=== PATIENT | female | born 2000 | race African-American/Black ===

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

== ENCOUNTER 2020-01-28 20:57 | Emergency (ER) | payer BC ==
[~2020-01-28] VITALS: Ht 157.5 cm; Wt 52.0 kg
[2020-01-28] MEDS ORDERED: FLUCONAZOLE 100MG TABLET PO ONE (22:15)
[2020-01-28] MEDS ORDERED: FLUCONAZOLE 150MG TABLET PO NR (22:15)
[2020-01-28 22:58] LABS: CLARITY URINE CLOUDY (CLEAR); COLOR URINE YELLOW (YELLOW); KETONES URINE NEGATIVE (NEGATIVE); LEUKOCYTE ESTERASE URINE 3+ (NEGATIVE); NITRITE URINE NEGATIVE (NEGATIVE); OCCULT BLOOD URINE 3+ (NEGATIVE); PH URINE 5.5 (4.5-8.0); PROTEIN URINE TRACE (NEGATIVE)
[2020-01-29] VITALS: BP 129/88
== END 2020-01-29 00:02 | disposition home or self-care (01) ==
LOC: ER 20:57
DX: N39.0 Urinary tract infection, site not specified (principal)
CPT/HCPCS: 81003; 81025; 93005; 99284

== ENCOUNTER 2020-02-08 17:23 | Emergency (ER) | payer BC ==
[~2020-02-08] VITALS: Ht 157.5 cm; Wt 52.0 kg
[2020-02-08 17:27] VITALS: BP 114/84
[2020-02-14 19:08] LABS: NEISSERIA GONORRHOEAE NAA Negative (Negative)
== END 2020-02-08 20:30 | disposition home or self-care (01) ==
LOC: ER 17:23
DX: N76.0 Acute vaginitis (principal); B37.41 Candidal cystitis and urethritis
CPT/HCPCS: 81025; 87210; 87491; 87591; 99283

== ENCOUNTER 2020-05-07 07:35 | Emergency (ER) | payer BC ==
[~2020-05-07] VITALS: Ht 157.5 cm; Wt 53.0 kg
[2020-05-07] MEDS ORDERED: IBUPROFEN 600MG TABLET PO ONE (08:30)
[2020-05-07] MEDS ORDERED: ONDANSETRON 4MG ODT PO ONE (08:45)
[2020-05-07 09:20] VITALS: BP 120/65
[2020-05-07 09:32] LABS: CLARITY URINE CLEAR (CLEAR); COLOR URINE YELLOW (YELLOW); KETONES URINE NEGATIVE (NEGATIVE); LEUKOCYTE ESTERASE URINE 2+ (NEGATIVE); NITRITE URINE NEGATIVE (NEGATIVE); OCCULT BLOOD URINE 3+ (NEGATIVE); PH URINE 5.5 (4.5-8.0); PROTEIN URINE TRACE (NEGATIVE)
== END 2020-05-07 10:07 | disposition home or self-care (01) ==
LOC: ER 07:35
DX: N39.0 Urinary tract infection, site not specified (principal)
CPT/HCPCS: 81003; 81025; 99283; Q0162

== ENCOUNTER 2020-05-17 14:43 | Emergency (ER) | payer BC ==
[~2020-05-17] VITALS: Ht 157.5 cm; Wt 53.0 kg
[2020-05-17 16:49] LABS: CLARITY URINE CLEAR (CLEAR); COLOR URINE YELLOW (YELLOW); KETONES URINE NEGATIVE (NEGATIVE); LEUKOCYTE ESTERASE URINE 2+ (NEGATIVE); NITRITE URINE NEGATIVE (NEGATIVE); OCCULT BLOOD URINE NEGATIVE (NEGATIVE); PROTEIN URINE NEGATIVE (NEGATIVE); SPECIFIC GRAVITY URINE 1.018 (1.005-1.030)
[2020-05-17 18:12] VITALS: BP 128/82
== END 2020-05-17 18:13 | disposition home or self-care (01) ==
LOC: ER 14:49
DX: N39.0 Urinary tract infection, site not specified (principal)
CPT/HCPCS: 81003; 81025; 93005; 99283; 99284

== ENCOUNTER 2020-07-09 10:43 | Emergency (ER) | payer BC ==
[~2020-07-09] VITALS: Ht 157.5 cm; Wt 51.0 kg
[2020-07-09 10:46] VITALS: BP 95/76
[2020-07-09] MEDS ORDERED: PHENAZOPYRIDINE HCL 100MG TABLET PO ONE (11:30)
[2020-07-09] MEDS ORDERED: NITROFURANTOIN 100MG M/M CAPSULE PO ONE (11:30)
[2020-07-09 11:56] LABS: CLARITY URINE CLEAR (CLEAR); COLOR URINE YELLOW (YELLOW); KETONES URINE NEGATIVE (NEGATIVE); LEUKOCYTE ESTERASE URINE 3+ (NEGATIVE); NITRITE URINE NEGATIVE (NEGATIVE); OCCULT BLOOD URINE TRACE (NEGATIVE); PROTEIN URINE NEGATIVE (NEGATIVE); SPECIFIC GRAVITY URINE 1.018 (1.005-1.030)
== END 2020-07-09 12:43 | disposition home or self-care (01) ==
LOC: ER 10:43
DX: N39.0 Urinary tract infection, site not specified (principal); R31.0 Gross hematuria; Z87.440 Personal history of urinary (tract) infections
CPT/HCPCS: 81003; 99283

== ENCOUNTER 2020-08-24 14:07 | Emergency (ER) | payer BC ==
[~2020-08-24] VITALS: Ht 157.5 cm; Wt 60.0 kg
[2020-08-24] MEDS ORDERED: ONDANSETRON HCL 4MG/2ML INJ IV STA (18:35)
[2020-08-24] MEDS ORDERED: KETOROLAC 30MG/ML VIAL IV STA (18:35)
[2020-08-24] MEDS ORDERED: SODIUM CHLORIDE 0.9% 1,000 ML IV ONE (18:45)
[2020-08-24 19:31] LABS: BASOPHILS % 0.9 % (0.0-2.0); EOSINOPHILS % 1.3 % (0.0-5.0); HEMATOCRIT. 39.3 % (36.0-48.0); HEMOGLOBIN. 13.2 g/dL (12.0-16.0); LYMPHOCYTES % 30.6 % (20.0-50.0); MEAN CORPUSCULAR VOLUME 83.3 fL (81.0-99.0); MONOCYTES % 6.3 % (2.0-8.0); NEUTROPHILS % 60.9 % (40.0-76.0); PLATELET 401 x1000/uL (130-400); RED BLOOD CELL COUNT 4.72 mill/uL (4.2-5.4); RED CELL DISTRIBUTION WIDTH 14.4 % (11.6-14.6)
[2020-08-24 19:40] LABS: CHLORIDE 112 mEq/L (98-107)
[2020-08-24 19:45] LABS: CLARITY URINE CLOUDY (CLEAR); COLOR URINE ORANGE (YELLOW); KETONES URINE NEGATIVE (NEGATIVE); LEUKOCYTE ESTERASE URINE 3+ (NEGATIVE); NITRITE URINE NEGATIVE (NEGATIVE); OCCULT BLOOD URINE 3+ (NEGATIVE); PROTEIN URINE 1+ (NEGATIVE); SPECIFIC GRAVITY URINE 1.017 (1.005-1.030)
[2020-08-24] MEDS ORDERED: IBUP-2029 MT (20:36)
[2020-08-24] MEDS ORDERED: AMOX-424 MT (20:36)
[2020-08-24 21:27] VITALS: BP 121/70
== END 2020-08-24 21:28 | disposition home or self-care (01) ==
LOC: ER 14:07
DX: N10 Acute pyelonephritis (principal); N30.90 Cystitis, unspecified without hematuria; R03.0 Elevated blood-pressure reading, without diagnosis of hypertension; Z87.440 Personal history of urinary (tract) infections
CPT/HCPCS: 36415; 80053; 81003; 81025; 83690; 85025; 87077; 87086; 93005; 96361; 96374; 96375; 99284; J1885; J2405; J7030

== ENCOUNTER 2020-09-15 14:54 | Emergency (ER) | payer BC ==
[~2020-09-15] VITALS: Ht 157.5 cm; Wt 55.0 kg
[~2020-09-15 14:54] MED LIST: AMOX-424 MT; IBUP-2029 MT
[2020-09-15] MEDS ORDERED: SODIUM CHLORIDE 0.9% 1,000 ML IV ONE (16:30)
[2020-09-15 17:01] LABS: CHLORIDE 105 mEq/L (98-107)
[2020-09-15 18:09] LABS: BASOPHILS % 0.7 % (0.0-2.0); EOSINOPHILS % 0.5 % (0.0-5.0); HEMATOCRIT. 34.5 % (36.0-48.0); HEMOGLOBIN. 11.9 g/dL (12.0-16.0); LYMPHOCYTES % 32.3 % (20.0-50.0); MEAN CORPUSCULAR HEMOGLOBIN 28.9 pg (28.0-32.0); MEAN CORPUSCULAR VOLUME 83.8 fL (81.0-99.0); MEAN PLATELET VOLUME 10.4 fl (7.4-10.4); NEUTROPHILS % 59.5 % (40.0-76.0); PLATELET 333 x1000/uL (130-400); RED BLOOD CELL COUNT 4.12 mill/uL (4.2-5.4); RED CELL DISTRIBUTION WIDTH 14.6 % (11.6-14.6)
[2020-09-15 18:27] LABS: CLARITY URINE CLEAR (CLEAR); COLOR URINE YELLOW (YELLOW); KETONES URINE 2+ (NEGATIVE); LEUKOCYTE ESTERASE URINE TRACE (NEGATIVE); NITRITE URINE NEGATIVE (NEGATIVE); OCCULT BLOOD URINE NEGATIVE (NEGATIVE); PROTEIN URINE NEGATIVE (NEGATIVE); SPECIFIC GRAVITY URINE 1.014 (1.005-1.030); UROBILINOGEN URINE 0.2 E.U./dL (0.2-1.0)
[2020-09-15] MEDS ORDERED: KETOROLAC 15MG/ML VIAL IV ONE (18:30)
[2020-09-15] MEDS ORDERED: CEPH500T MT (20:07)
[2020-09-15] MEDS ORDERED: IBUP-2029 MT (20:07)
[2020-09-15] MEDS ORDERED: METH-773 MT (20:07)
[2020-09-15 20:26] VITALS: BP 115/72
== END 2020-09-15 20:27 | disposition home or self-care (01) ==
LOC: ER 14:54
DX: R10.9 Unspecified abdominal pain (principal); M54.40 Lumbago with sciatica, unspecified side
CPT/HCPCS: 36415; 74176; 80053; 81003; 81025; 83690; 85025; 85610; 93005; 96361; 96374; 99285; J1885; J7030; Z7610

== ENCOUNTER 2020-10-08 10:56 | Emergency (ER) | payer BC ==
[~2020-10-08] VITALS: Ht 157.5 cm; Wt 54.0 kg
[~2020-10-08 10:56] MED LIST changes: +CEPH500T MT; +METH-773 MT
[2020-10-08] MEDS ORDERED: KETOROLAC 60MG/2ML VIAL IM ONE (13:00)
[2020-10-08 13:22] LABS: CLARITY URINE CLEAR (CLEAR); COLOR URINE YELLOW (YELLOW); KETONES URINE NEGATIVE (NEGATIVE); LEUKOCYTE ESTERASE URINE 2+ (NEGATIVE); NITRITE URINE NEGATIVE (NEGATIVE); OCCULT BLOOD URINE TRACE (NEGATIVE); PROTEIN URINE NEGATIVE (NEGATIVE)
[2020-10-08 13:23] VITALS: BP 127/70
[2020-10-08] MEDS ORDERED: SULF1TAB48 MT (13:54)
== END 2020-10-08 14:10 | disposition home or self-care (01) ==
LOC: ER 10:56
DX: N39.0 Urinary tract infection, site not specified (principal)
CPT/HCPCS: 81003; 81025; 96372; 99283; J1885

== ENCOUNTER 2020-12-05 10:25 | Emergency (ER) | payer BC ==
[~2020-12-05] VITALS: Ht 157.5 cm; Wt 50.0 kg
[~2020-12-05 10:25] MED LIST changes: +SULF1TAB48 MT
[2020-12-05 10:29] VITALS: BP 118/76
== END 2020-12-05 13:07 | disposition left against medical advice (07) ==
LOC: ER 10:25
DX: Z53.21 Procedure and treatment not carried out due to patient leaving prior to being seen by health care provider (principal); R10.9 Unspecified abdominal pain

== ENCOUNTER 2024-04-22 14:39 | Emergency (ER) | payer SELFPAY ==
[~2024-04-22] VITALS: Ht 157.5 cm; Wt 57.0 kg
[2024-04-22 14:53] VITALS: O2SAT 100
[2024-04-22 18:16] LABS: EOSINOPHILS % 0.5 % (0.0-5.0); HEMATOCRIT. 37.7 % (36.0-48.0); HEMOGLOBIN. 12.7 g/dL (12.0-16.0); LYMPHOCYTES % 33.9 % (20.0-50.0); MEAN CORPUSCULAR HEMOGLOBIN 28.5 pg (28.0-32.0); MEAN CORPUSCULAR HGB CONC 33.5 g/dL (31.0-37.0); MEAN CORPUSCULAR VOLUME 84.9 fL (81.0-99.0); MEAN PLATELET VOLUME 10.2 fl (7.4-10.4); MONOCYTES % 5.2 % (2.0-8.0); NEUTROPHILS % 59.4 % (40.0-76.0); PLATELET 370 x1000/uL (130-400); RED BLOOD CELL COUNT 4.45 mill/uL (4.2-5.4); RED CELL DISTRIBUTION WIDTH 14.2 % (11.6-14.6)
[2024-04-22 18:21] LABS: CHLORIDE 108 mEq/L (98-107); POTASSIUM 3.5 mEq/L (3.5-5.1); SODIUM 140 mEq/L (136-145)
[2024-04-22 18:22] LABS: CALCIUM 9.7 mg/dL (8.7-10.4); CARBON DIOXIDE 24 mEq/L (21-32)
[2024-04-22 18:27] LABS: CREATININE 0.7 mg/dL (0.6-1.0); GLUCOSE 83 mg/dL (70-105); UREA NITROGEN BLOOD 7 mg/dL (9-23)
[2024-04-22 19:08] VITALS: BP 118/85; PULSE 84; RESP 16; TEMP 37.00296; O2SAT 100
== END 2024-04-22 19:12 | disposition home or self-care (01) ==
LOC: ER 14:39
DX: R06.00 Dyspnea, unspecified (principal); Z79.899 Other long term (current) drug therapy
CPT/HCPCS: 36415; 71045; 80048; 85025; 85379; 93005; 99285